=== PATIENT | female | born 1940 | race Caucasian/White ===

== ENCOUNTER → 2016-09-21 | Outpatient (CLI) | payer BC ==
[~2016-09-21] MED LIST: PRM625 PO
== END | disposition home or self-care (01) ==
LOC: C.PATHSPEC 13:54
PROVIDERS: ATTEND Dermatology
DX: C44.519 Basal cell carcinoma of skin of other part of trunk (principal); L57.0 Actinic keratosis

== ENCOUNTER → 2016-09-29 | Outpatient (CLI) | payer BC ==
--- NOTE | 2016-09-29 15:55 | DIAGNOSTIC IMAGING REPORT ---
LEFT HIP 2 VIEWS CLINICAL HISTORY: Left hip and groin pain. FINDINGS: AP and frog-leg views of the left hip are obtained. No prior studies are available for comparison at the time of dictation. The skeletal structures are osteopenic. No fracture is identified in the left hip or the imaged left hemipelvis. The joint space of the hip appears maintained. The overlying soft tissues are within normal limits. Surgical clips project over the left pelvis. IMPRESSION: Osteopenia with no radiographic evidence of left hip fracture. Electronically signed by: Naseem José M.D. 09/29/2016 3:53 PM Dictated Date/Time: 09/29/2016 3:49 PM
[2016-09-29 17:06] LABS: URINE APPEARANCE CLOUDY (CLEAR); URINE BILIRUBIN NEG (NEG); URINE COLOR YELLOW; URINE NITRITE NEG (NEG); URINE PH 7.5 (4.5-7.5); URINE SPECIFIC GRAVITY 1.013 (1.000-1.030); UROBILINOGEN NEG (NEG)
[2016-09-29 17:17] LABS: MANUAL MICROSCOPIC REQUIRED? NO; REVIEW REQ? NO
== END | disposition home or self-care (01) ==
LOC: C.RADBC 15:14
PROVIDERS: ATTEND Internal Medicine
DX: M25.552 Pain in left hip (principal); M85.80 Other specified disorders of bone density and structure, unspecified site; R39.9 Unspecified symptoms and signs involving the genitourinary system

== ENCOUNTER → 2016-12-07 | Outpatient (CLI) | payer BC | END | disposition home or self-care (01) | LOC: C.PATHSPEC 16:58 | PROVIDERS: ATTEND Dermatology | DX: Z01.89 Encounter for other specified special examinations (principal) ==

== ENCOUNTER → 2017-03-09 | Outpatient (CLI) | payer BC | END | disposition home or self-care (01) | LOC: C.PATHSPEC 16:17 | PROVIDERS: ATTEND Dermatology | DX: L57.0 Actinic keratosis (principal) ==

== ENCOUNTER → 2017-06-14 | Outpatient (CLI) | payer BC ==
[2017-06-14 11:08] LABS: ALT/SGPT 28 U/L (12-78); AST/SGOT 25 U/L (15-37); BLOOD UREA NITROGEN 17 mg/dl (7-18); BUN/CREATININE RATIO 23.6 (10-20); CALCIUM 8.9 mg/dl (8.5-10.1); CARBON DIOXIDE 30 mmol/L (21-32); CHLORIDE 106 mmol/L (98-107); CREATININE 0.72 mg/dl (0.60-1.20); GLUCOSE 98 mg/dl (70-99); POTASSIUM 4.2 mmol/L (3.5-5.1); SODIUM 141 mmol/L (136-145)
[2017-06-14 11:19] LABS: ALB/GLOB RATIO 1.3 (0.9-2); ALKALINE PHOSPHATASE 90 U/L (45-117); CHOLESTEROL 229 mg/dl (0-200); CHOLESTEROL/HDL RATIO 2.4; HDL CHOLESTEROL 94 mg/dl; LDL CHOLESTEROL CALCULATED 119 mg/dl; TRIGLYCERIDES 78 mg/dl (0-150); VERY LOW DENSITY LIPOPROT CALC 16 mg/dl
== END | disposition home or self-care (01) ==
LOC: C.LABBC 08:04
PROVIDERS: ATTEND Physician Assistant Medical
DX: Z00.00 Encounter for general adult medical examination without abnormal findings (principal); M85.80 Other specified disorders of bone density and structure, unspecified site

== ENCOUNTER → 2017-07-21 | Outpatient (CLI) | payer BC ==
--- NOTE | 2017-07-21 12:33 | DIAGNOSTIC IMAGING REPORT ---
SACRUM COCCYX MIN 2 VIEWS CLINICAL HISTORY: M54.9 Acute back painW19.XXXA Fall, [id number] tailbone pain. COMPARISON STUDY: None. FINDINGS: Large amount stool within the colon which partially the sacrum and coccyx. No definite fractures identified within the sacrum or coccyx. The bilateral sacroiliac joints demonstrate mild degenerative changes. Presacral soft tissues are normal in thickness. IMPRESSION: No fractures within the sacrum or coccyx. Electronically signed by: Rolando Winkler M.D. 07/21/2017 12:32 PM Dictated Date/Time: 07/21/2017 12:31 PM
--- NOTE | 2017-07-21 12:35 | DIAGNOSTIC IMAGING REPORT ---
L-SPINE MIN 4 VIEWS ROUTINE HISTORY: Trauma. Pain. M54.9 Acute back painW19.XXXA Fall, [id number] Abdominal pa COMPARISON: None. FINDINGS: Moderate compression deformity T11 of uncertain age. Mild degenerative disc changes of lumbar spine. No acute compression deformity of the lumbar region. Mild nonobstructive reactive ileus. No subluxation. IMPRESSION: 1. No acute process of the lumbar spine. 2. Mild reactive colonic ileus. 3. Moderate compression deformity T11 of uncertain age. The above report was generated using voice recognition software. It may contain grammatical, syntax or spelling errors. Electronically signed by: Adam Martin M.D. 07/21/2017 12:33 PM Dictated Date/Time: 07/21/2017 12:31 PM
--- NOTE | 2017-07-21 12:36 | DIAGNOSTIC IMAGING REPORT ---
KUB CLINICAL HISTORY: Generalized abdominal pain. Bloating. FINDINGS: 2 AP supine abdominal radiographs are obtained. No prior studies are available for comparison at the time of dictation. There is a nonobstructed abdominal bowel gas pattern. Surgical clips are seen in the pelvis bilaterally. There is rectosigmoid fecal impaction and moderate constipation. No abnormal abdominal calcifications are seen. The skeletal structures are osteopenic. The bony structures are grossly intact. IMPRESSION: Rectosigmoid fecal impaction and moderate constipation. Electronically signed by: Naseem José M.D. 07/21/2017 12:34 PM Dictated Date/Time: 07/21/2017 12:33 PM
[2017-07-21 13:22] LABS: URINE APPEARANCE CLEAR (CLEAR); URINE BILIRUBIN NEG (NEG); URINE COLOR YELLOW; URINE EPITHELIAL CELL AUTO >30 /lpf (0-5); URINE NITRITE NEG (NEG); URINE SPECIFIC GRAVITY 1.021 (1.000-1.030); UROBILINOGEN NEG (NEG); ZZUR CULT IF INDIC CLEAN CATCH NO
[2017-07-21 13:23] LABS: MANUAL MICROSCOPIC REQUIRED? NO; REVIEW REQ? NO
== END | disposition home or self-care (01) ==
LOC: C.RADBC 12:06
PROVIDERS: ATTEND Physician Assistant Medical
DX: M54.9 Dorsalgia, unspecified (principal); R10.9 Unspecified abdominal pain; T14.8XXA Other injury of unspecified body region, initial encounter; W19.XXXA Unspecified fall, initial encounter; K59.00 Constipation, unspecified; S22.080A Wedge compression fracture of T11-T12 vertebra, initial encounter for closed fracture

== ENCOUNTER → 2017-08-25 | Outpatient (CLI) | payer BC ==
--- NOTE | 2017-08-28 08:00 | MAMMOGRAPHY REPORT ---
BILATERAL DIGITAL SCREENING MAMMOGRAM WITH CAD: 08/25/2017 CLINICAL HISTORY: Routine screening. Patient has no complaints. TECHNIQUE: Current study was also evaluated with a Computer Aided Detection (CAD) system. Bilateral CC and MLO views were obtained. COMPARISON: Comparison is made to exam dated: 07/28/2016 mammogram - [facility]. Also prior outside mammograms dated 05/25/2015, 05/14/2014, 05/10/2013, 03/26/2012. BREAST COMPOSITION: The tissue of both breasts is heterogeneously dense, which may obscure small mas ses. FINDINGS: No suspicious masses, calcifications, or areas of architectural distortion are noted in ei ther breast. There has been no significant interval change compared to prior exams. Scattered bilater al benign-appearing calcifications are not significantly changed. IMPRESSION: ACR BI-RADS CATEGORY 2: BENIGN There is no mammographic evidence of malignancy. A 1 year screening mammogram is recommended. The pa tient will receive written notification of the results. Approximately 10% of breast cancers are not detected with mammography. A negative mammographic report should not delay biopsy if a clinically suggestive mass is present. Chelo Lee M.D. /:08/25/2017 16:31:38 Export Clerk: Scarlett LEZAMA(Manas)(Yaritza)([place]), [facility] letter sent: Normal 1/2 BI-RADS Code: ACR BI-RADS Category 2: Benign
== END | disposition home or self-care (01) ==
LOC: C.MAMM 12:23
PROVIDERS: ATTEND Physician Assistant Medical
DX: Z12.31 Encounter for screening mammogram for malignant neoplasm of breast (principal)

== ENCOUNTER → 2018-04-10 | Outpatient (CLI) | payer BC ==
--- NOTE | 2018-04-10 12:52 | DIAGNOSTIC IMAGING REPORT ---
CHEST 2 VIEWS ROUTINE CLINICAL HISTORY: CHEST PAIN dyspnea COMPARISON STUDY: No previous studies for comparison. FINDINGS: The bones soft tissues and hemidiaphragms are normal. The cardiomediastinal silhouette is normal. The lungs are clear. The pulmonary vasculature is normal. IMPRESSION: Negative chest. The above report was generated using voice recognition software. It may contain grammatical, syntax or spelling errors. Electronically signed by: Adam Martin M.D. 04/10/2018 12:50 PM Dictated Date/Time: 04/10/2018 12:50 PM
--- NOTE | 2018-04-10 12:56 | DIAGNOSTIC IMAGING REPORT ---
L-SPINE MIN 4 VIEWS ROUTINE CLINICAL HISTORY: Lower back pain. Trauma. COMPARISON STUDY: 07/21/2017 FINDINGS: There is an old T11 compression fracture. No lumbar fractures are visualized. There are no subluxations. There is calcification within the L5-S1 disc. There is mild lower lumbar facet joint arthropathy. IMPRESSION: 1. Old T11 compression fracture 2. No acute fractures or subluxations identified Electronically signed by: Rakesh Childress M.D. 04/10/2018 12:55 PM Dictated Date/Time: 04/10/2018 12:54 PM
--- NOTE | 2018-04-10 13:05 | DIAGNOSTIC IMAGING REPORT ---
THORACIC SPINE 3 VIEWS ROUTINE HISTORY: Dyspnea. Pain. CHEST PAIN COMPARISON: None. FINDINGS: Old T11 compression No subluxation. Moderate degenerative disc changes throughout. IMPRESSION: 1. Old compression deformity T11. 2. Moderate degenerative change throughout the remainder of the thoracic region. The above report was generated using voice recognition software. It may contain grammatical, syntax or spelling errors. Electronically signed by: Adam Martin M.D. 04/10/2018 1:04 PM Dictated Date/Time: 04/10/2018 1:03 PM
== END | disposition home or self-care (01) ==
LOC: C.RADBC 12:18
PROVIDERS: ATTEND Physician Assistant Medical
DX: R07.9 Chest pain, unspecified (principal)